=== PATIENT | male | born 1970 | race African-American/Black ===

== ENCOUNTER → 2017-07-03 | Outpatient (CLI) | payer OTHER ==
[~2017-07-03] MED LIST: AMOX875 PO; HYDR-2768 PO; LISI-363 PO
[2017-07-03 07:45] LABS: MICRO ALBUMIN RANDOM URINE RAW 12.1 MG/L (0.0-30.0)
[2017-07-03 08:04] LABS: ALT (GPT) 35 U/L (12-78); ANION GAP 9 MEQ/L (5-15); AST (GOT) 22 U/L (15-37); BICARBONATE 30.3 MEQ/L (21.0-32.0); BLOOD UREA NITROGEN 15 MG/DL (7-18); CHLORIDE 97 MEQ/L (98-107); GLOMERULAR FILTRATION RATE 75 ML/MIN (>89); GLUCOSE,FASTING 95 MG/DL (74-99); POTASSIUM 3.4 MEQ/L (3.5-5.1); SODIUM (NA) 136 MEQ/L (136-145)
[2017-07-03 08:06] LABS: AUTOMATED NEUTROPHIL # 4.1 TH/MM3 (1.8-7.7); BASOPHIL % 0.3 % (0.0-2.0); EOSINOPHIL # 0.2 TH/MM3 (0-0.4); EOSINOPHIL % 2.4 % (0.0-4.0); HEMATOCRIT 50.1 % (39.0-51.0); HEMO FLAGS DIFF FINAL; LYMPH % 39.5 % (9.0-44.0); LYMPHOCYTE # 3.3 TH/MM3 (1.0-4.8); MEAN CORPUSCULAR HEMOGLOBIN 28.7 PG (27.0-34.0); MEAN CORPUSCULAR HGB CONC 33.4 % (32.0-36.0); MONO % 8.8 % (0.0-8.0); PLATELET COUNT 215 TH/MM3 (150-450); RED BLOOD COUNT 5.83 MIL/MM3 (4.50-5.90); WHITE BLOOD COUNT 8.4 TH/MM3 (4.0-11.0)
[2017-07-03 08:14] LABS: ALKALINE PHOSPHATASE 65 U/L (45-117); HDL CHOLESTEROL 29.4 MG/DL (40.0-60.0); LDL CHOLESTEROL 168 MG/DL (0-99); TOTAL BILIRUBIN ADULT 0.6 MG/DL (0.2-1.0)
== END ==
LOC: CLAB 06:44
PROVIDERS: ATTEND Family Medicine
DX: I10 Essential (primary) hypertension (principal); R73.01 Impaired fasting glucose; N40.0 Benign prostatic hyperplasia without lower urinary tract symptoms
CPT/HCPCS: 36415; 80053; 80061; 82043; 84153; 84443; 85025

== ENCOUNTER 2018-07-04 17:11 | Inpatient (IN) ==
--- NOTE | 2018-07-04 17:23 | ED ---
HPI General Chief complaint: Urogenital-Male Stated complaint: fever/post op Time Seen by Provider: 07/04/18 17:19 Source: patient Mode of arrival: ambulatory Limitations: no limitations History of Present Illness HPI narrative: 47-year-old male with history of hypertension presents emergency department for evaluation of fever, lower abdominal pain, 3 days after prostate biopsy done by Dr. Isaac. Patient reports that initially he had hematuria. This has persisted. Yesterday he had a low-grade temperature that broke on its own. Today he had a fever of 101.8 and took 600 mg ibuprofen prior to coming to the hospital. He contacted the urologist who advised to come to the emergency department, concerned that he is uroseptic. Patient does report a suprapubic pain, moderate in severity. It does not radiate anywhere. He denies any bowel changes. He was nauseous but denies vomiting. He denies any chest pain or tightness. He has no other symptoms to report. Related Data Home Medications Medication Instructions Recorded Confirmed amlodipine 2.5 mg PO BID 07/01/18 07/04/18 lisinopril-hydrochlorothiazide 1 tab PO BID 07/01/18 07/04/18 omeprazole magnesium [Prilosec OTC] 20 mg PO DAILY 07/01/18 07/04/18 Allergies Allergy/AdvReac Type Severity Reaction Status Date / Time No Known Allergies Allergy Verified 07/04/18 17:14 Review of Systems ROS: all other systems reviewed are negative PMFSH History History Provided By: Patient Medical History Medical History Acid reflux (Acute) Elevated PSA (Acute) Hypertension (Acute) Surgical History Surgical History No history of previous surgery (Acute) Social History Social History Substance History: No History of Abuse Second Hand Smoke Exposure: No Smoking Status: Never smoker How Often Do You Have a Drink Containing Alcohol: Never Recent Travel in [facility] within the Last 8 Weeks: No Recent Out of Country Travel within the Last 8 Weeks: No Exam Narrative Exam Narrative: GENERAL: Well-nourished male patient, appears nontoxic and without distress SKIN: Focused skin assessment warm/dry. HEAD: Atraumatic. Normocephalic. EYES: Pupils equal and round. No scleral icterus. No injection or drainage. ENT: No nasal bleeding or discharge. Mucous membranes pink and moist. NECK: Trachea midline. No JVD. CARDIOVASCULAR: Regular rate and rhythm. No murmur appreciated. RESPIRATORY: No accessory muscle use. Clear to auscultation. Breath sounds equal bilaterally. GASTROINTESTINAL: Abdomen soft, nondistended. Suprapubic tenderness to palpation. No guarding. No rebound tenderness.. Hepatic and splenic margins not palpable. MUSCULOSKELETAL: No obvious deformities. No clubbing. No cyanosis. No edema. NEUROLOGICAL: Awake and alert. No obvious cranial nerve deficits. Motor grossly within normal limits. Normal speech. PSYCHIATRIC: Appropriate mood and affect; insight and judgment normal. Course Initial Documented Vital Signs Temperature 99.4 F 07/04/18 17:14 Pulse Rate 93 H 07/04/18 17:14 Respiratory Rate 20 07/04/18 17:14 Blood Pressure 195/90 H 07/04/18 17:14 Pulse Oximetry 95 07/04/18 17:14 Last Documented Vital Signs Temperature 99.4 F 07/04/18 17:14 Pulse Rate 82 07/04/18 17:19 Respiratory Rate 20 07/04/18 17:16 Blood Pressure 160/84 H 07/04/18 17:16 Pulse Oximetry 93 L 07/04/18 17:19 Medical Decision Making ROMULO Attestation ROMULO supervised visit: Yes MDM Narrative Medical decision making narrative: 47-year-old male presents emergency department for evaluation. Patient appears nontoxic. He does have suprapubic tenderness to palpation. Patient does have a low-grade temperature upon arrival. He does have a leukocytosis of 14.8. I discussed the patient my attending physician. Septic workup is initiated. Patient is given Rocephin IV. He will be admitted for further evaluation and IV antibiotic. Medical Screen Exam Complete: Yes Emergency Medical Condition: Yes Lab Data Lab results reviewed: Yes I reviewed the patient's lab results. Result diagrams: 07/04/18 17:45 07/04/18 17:45 Lab Results 07/04/18 07/04/18 07/04/18 Range/Units 17:45 17:45 17:45 WBC 14.8 H (4.0-11.0) th/mm3 RBC 5.88 (4.50-5.90) mil/mm3 Hgb 17.3 H (13.0-17.0) gm/dL Hct 50.7 (39.0-51.0) % MCV 86.2 (80.0-100.0) fL MCH 29.4 (27.0-34.0) pg MCHC 34.1 (32.0-36.0) % RDW 15.2 (11.6-17.2) % Plt Count 221 (150-450) th/mm3 MPV 9.3 (7.0-11.0) fL Neut % (Auto) 80.3 H (16.0-70.0) % Lymph % (Auto) 13.3 (9.0-44.0) % [place] % (Auto) 5.8 (0.0-8.0) % Eos % (Auto) 0.5 (0.0-4.0) % Baso % (Auto) 0.1 (0.0-2.0) % Neut # (Auto) 11.9 H (1.8-7.7) th/mm3 Lymph # (Auto) 2.0 (1.0-4.8) th/mm3 [place] # (Auto) 0.9 (0.0-0.9) th/mm3 Eos # (Auto) 0.1 (0.0-0.4) th/mm3 Baso # (Auto) 0.0 (0.0-0.2) th/mm3 WBC Differential . Differential Comment Auto diff final Sodium 139 (136-145) meq/L Potassium 3.8 (3.5-5.1) meq/L Chloride 102 (98-107) meq/L Carbon Dioxide 27.2 (21.0-32.0) meq/L Anion Gap 10 (5-15) meq/L BUN 12 (7-18) mg/dL Creatinine 1.57 H (0.60-1.30) mg/dL Estimated GFR 58 L (>89) mL/min Random Glucose 136 H (74-106) mg/dL Lactic Acid 2.0 (0.4-2.0) mmol/L Calcium 9.4 (8.5-10.1) mg/dL Total Bilirubin 0.7 (0.2-1.0) mg/dL AST 31 (15-37) U/L ALT 51 (12-78) U/L Alkaline Phosphatase 71 (45-117) U/L Total Protein 8.2 (6.4-8.2) g/dL Albumin 4.1 (3.4-5.0) g/dL Urine Color (Yellw/Straw) Urine Clarity (Clear) Urine pH (5.0-8.5) Ur Specific [place] (1.002-1.035) Urine Protein (Neg-Trace) mg/dL Urine Glucose (UA) (Negative) mg/dL Urine Ketones (Negative) mg/dL Urine Occult Blood (Negative) Urine Nitrate (Negative) Urine Bilirubin (Negative) Urine Urobilinogen (Less than 2) mg/dL Ur Leukocyte Esterase (Negative) Urine RBC (0-3) /hpf Urine WBC (0-5) /hpf Urine WBC Clumps (None) Urine Bacteria (None) /hpf Urine Mucus (Occasional) /lpf Micro UA Comment Ur Microscopic Review Urine Culture Comments 07/04/18 Range/Units 18:30 WBC (4.0-11.0) th/mm3 RBC (4.50-5.90) mil/mm3 Hgb (13.0-17.0) gm/dL Hct (39.0-51.0) % MCV (80.0-100.0) fL MCH (27.0-34.0) pg MCHC (32.0-36.0) % RDW (11.6-17.2) % Plt Count (150-450) th/mm3 MPV (7.0-11.0) fL Neut % (Auto) (16.0-70.0) % Lymph % (Auto) (9.0-44.0) % [place] % (Auto) (0.0-8.0) % Eos % (Auto) (0.0-4.0) % Baso % (Auto) (0.0-2.0) % Neut # (Auto) (1.8-7.7) th/mm3 Lymph # (Auto) (1.0-4.8) th/mm3 [place] # (Auto) (0.0-0.9) th/mm3 Eos # (Auto) (0.0-0.4) th/mm3 Baso # (Auto) (0.0-0.2) th/mm3 WBC Differential Differential Comment Sodium (136-145) meq/L Potassium (3.5-5.1) meq/L Chloride (98-107) meq/L Carbon Dioxide (21.0-32.0) meq/L Anion Gap (5-15) meq/L BUN (7-18) mg/dL Creatinine (0.60-1.30) mg/dL Estimated GFR (>89) mL/min Random Glucose (74-106) mg/dL Lactic Acid (0.4-2.0) mmol/L Calcium (8.5-10.1) mg/dL Total Bilirubin (0.2-1.0) mg/dL AST (15-37) U/L ALT (12-78) U/L Alkaline Phosphatase (45-117) U/L Total Protein (6.4-8.2) g/dL Albumin (3.4-5.0) g/dL Urine Color Red (Yellw/Straw) Urine Clarity Cloudy H (Clear) Urine pH 5.0 (5.0-8.5) Ur Specific [place] 1.020 (1.002-1.035) Urine Protein 100 H (Neg-Trace) mg/dL Urine Glucose (UA) Negative (Negative) mg/dL Urine Ketones Negative (Negative) mg/dL Urine Occult Blood Large H (Negative) Urine Nitrate Negative (Negative) Urine Bilirubin Negative (Negative) Urine Urobilinogen Less than 2 (Less than 2) mg/dL Ur Leukocyte Esterase Moderate H (Negative) Urine RBC (0-3) /hpf Urine WBC (0-5) /hpf Urine WBC Clumps Occasional H (None) Urine Bacteria Occasional H (None) /hpf Urine Mucus Few H (Occasional) /lpf Micro UA Comment Culture indicated Ur Microscopic Review Not Reportable Urine Culture Comments Culture indicated Imaging Data Radiologist's impression: Chest X-Ray 07/04/18 17:19 CONCLUSION: Negative examination. Discharge Plan Discharge Disposition Patient Disposition: 30 Still Patient Discharge Condition Condition: Stable Discharge Details Diagnosis: Sepsis, UTI (urinary tract infection) Physicians Team ED Provider: Sondra Claros ED Midlevel Provider: Mony Castelan Primary Care Provider: Beny Manning Rxs /Orders / Referrals /Forms Prescriptions: No Action lisinopril-hydrochlorothiazide 20-12.5 mg Tablet 1 tab PO BID RF: 0 amlodipine 2.5 mg Tablet 2.5 mg PO BID RF: 0 omeprazole magnesium [Prilosec OTC] 20 mg Tablet,Delayed Release (Dr/Ec) 20 mg PO DAILY RF: 0 Discharge Interventions Interventions: Vital Signs Last Done: 07/04/18 17:16 Status ED Status: With Doctor
[2018-07-04] MEDS: Sod Chloride 0.9% Inj 1,000 ML IV.SIG SCH ×2 (17:50→18:26)
[2018-07-04] MEDS ORDERED: Piperacil/Tazo 4.5 GM Premix 4.5 GM/100 ML BAG IV.SIG STA (18:14)
[2018-07-04 18:24] LABS: Baso % (Auto) 0.1 % (0.0-2.0); Eos # (Auto) 0.1 th/mm3 (0.0-0.4); Eos % (Auto) 0.5 % (0.0-4.0); Hematocrit 50.7 % (39.0-51.0); Hemoglobin 17.3 gm/dL (13.0-17.0); Lymph % (Auto) 13.3 % (9.0-44.0); Mean Corpuscular HGB Conc 34.1 % (32.0-36.0); Mean Corpuscular Hemoglobin 29.4 pg (27.0-34.0); Mean Corpuscular Volume 86.2 fL (80.0-100.0); Mean Platelet Volume 9.3 fL (7.0-11.0); Mono # (Auto) 0.9 th/mm3 (0.0-0.9); Mono % (Auto) 5.8 % (0.0-8.0); Neut # (Auto) 11.9 th/mm3 (1.8-7.7); Neut % (Auto) 80.3 % (16.0-70.0); Platelet Count 221 th/mm3 (150-450); Red Blood Count 5.88 mil/mm3 (4.50-5.90); Red Cell Distribution Width 15.2 % (11.6-17.2); White Blood Count 14.8 th/mm3 (4.0-11.0)
--- NOTE | 2018-07-04 18:44 | XR ---
EXAM DATE: 07/04/2018 6:31 PM EDT AGE/SEX: 47 years / Male INDICATIONS: Fever. Recent prostate biopsy. CLINICAL DATA: This is the patient's initial encounter. Patient reports that signs and symptoms have been present for 3 days and indicates a pain score of 0/10. MEDICAL/SURGICAL HISTORY: Hypertension. None. COMPARISON: [facility] [place], CHEST SINGLE AP, 07/20/2012. . FINDINGS: A single AP view of the chest demonstrates the lungs to be symmetrically aerated without evidence of mass, infiltrate or effusion. The cardiomediastinal contours are unremarkable. Osseous structures a re intact. CONCLUSION: Negative examination. Electronically signed by: Lupillo Hunter MD 07/04/2018 6:43 PM EDT
[2018-07-04 18:48] LABS: Alanine Aminotransferase 51 U/L (12-78); Alkaline Phosphatase 71 U/L (45-117); Total Protein 8.2 g/dL (6.4-8.2)
[2018-07-04 18:59] LABS: Bacteria,Urine Occasional /hpf; Bilirubin,Urine Negative (Negative); Clarity,Urine Cloudy (Clear); Color,Urine Red (Yellw/Straw); Glucose,Urine (UA) Negative (Negative); Leukocyte Esterase,Urine Moderate (Negative); Mucus,Urine Few /lpf (Occasional); Nitrite,Urine Negative (Negative)
[2018-07-04 19:00] LABS: Albumin 4.1 g/dL (3.4-5.0); Anion Gap 10 meq/L (5-15); Aspartate Aminotransferase 31 U/L (15-37); Blood Urea Nitrogen 12 mg/dL (7-18); Calcium 9.4 mg/dL (8.5-10.1); Carbon Dioxide 27.2 meq/L (21.0-32.0); Chloride 102 meq/L (98-107); Glomerular Filtration Rate 58 mL/min (>89); Glucose,Random 136 mg/dL (74-106); Sodium 139 meq/L (136-145)
[2018-07-04 19:04] LABS: Potassium 3.8 meq/L (3.5-5.1)
[2018-07-04] MEDS ORDERED: Morphine Inj 4 MG/ML Vial IV.PUSH PRN (20:32)
[2018-07-04] MEDS ORDERED: Bisacodyl 10 MG Supp RECTAL PRN (20:33)
--- NOTE | 2018-07-04 20:34 | P.HPIM ---
History of Present Illness Primary Care Physician: Beny Manning MD History of Present Illness: This is a 47-year-old male with a PMH of HTN who was referred to the ER by his Urologist, Dr. Isaac, for eval of possible sepsis. States he underwent prostate biopsy by Dr. Isaac on 07/02/18 for elevated PSA, has had abdominal pain and hematuria since. Pain is in lower abdomen, intermittent, moderate, 6/ 10, non-radiating. Reports associated temp of 101.8 at home. Called his Urologist and referred to the ER. On arrival, BP 155/75, HR 70, O2 sat 98% on RA, Temp 99.8. WBC 14.8. Creatinine 1.57, previously 1.42 on 06/12/2018. CXR no acute findings. S/p Rocephin in ER. - Diagnosis (1) Sepsis (2) UTI (urinary tract infection) (3) ZENAIDA (acute kidney injury) Inpatient Certification: I certify that the inpatient services were ordered in accordance with Medicare regulations governing the order. This includes certification that hospital inpatient services are reasonable and necessary and in the case of services not specified as inpatient-only under 42 CFR 419.22(n), that they are appropriately provided as inpatient services in accordance to with the 2-midnight benchmark under 43 CFR 412.3(e) Estimated Total Length of Stay (Days): 2 Plans for Post Hospital Care: Not yet determined Review of Systems PAST FAMILY HISTORY: Reviewed. No h/o DM or CAD All other systems reviewed negative except as [facility] - History History Provided By: Patient - Medical History Medical History: Medical History (Last Reviewed 07/04/18 @ 19:47 by AROLDO Flowers) Acid reflux Elevated PSA Hypertension - Surgical History Surgical History: Surgical History (Last Reviewed 07/04/18 @ 19:47 by AROLDO Flowers) No history of previous surgery - Tobacco History Second Hand Smoke Exposure: No Smoking Status: Never smoker - Alcohol History How Often Do You Have a Drink Containing Alcohol: Never - Substance Use History Substance History: No History of Abuse - Travel History Recent Travel in the [place] Within the Last 8 Weeks: No Recent Travel Out of the Country Within the Last 8 Weeks: No - Immunization History Tetanus Immunization: >5 Years Hx Influenza Vaccine This Season: Yes Medications and Allergies Active Medications: Active Medications Sodium Chloride (Ns Inj) 1,000 mls @ 0 mls/hr IV.SIG BOLUS NORTH Stop: 07/05/18 17:31 Last Admin: 07/04/18 18:26 Dose: 999 mls/hr Allergies Allergy/AdvReac Type Severity Reaction Status Date / Time No Known Allergies Allergy Verified 07/04/18 17:14 Home Medications Medication Instructions Recorded Confirmed Type amlodipine 2.5 mg PO BID 07/01/18 07/04/18 History lisinopril-hydrochlorothiazide 1 tab PO BID 07/01/18 07/04/18 History omeprazole magnesium [Prilosec OTC] 20 mg PO DAILY 07/01/18 07/04/18 History Exam Vital signs: Vital Signs 07/04/18 17:14 07/04/18 17:16 07/04/18 17:19 Temperature 99.4 F Pulse Rate 93 H 86 82 Respiratory Rate 20 20 Blood Pressure 195/90 H 160/84 H Pulse Oximetry 95 93 L 93 L Intake & Output 07/04/18 07/04/18 07/05/18 06:59 18:59 06:59 Intake Total 1000 / 1000 Balance 1000 / 1000 Weight 136.078 kg Intake: IV 1000 / 1000 NS Inj 1,000 ML @ Wide Open IV. 1000 / 1000 SIG BOLUS NORTH Rx#:[id number] Narrative: PE: GENERAL: Very pleasant middle-aged male in no acute distress. at bedside. HEENT: PERRLA, EOMI. No scleral icterus or conjunctival pallor. No lid lag or facial droop. CARDIOVASCULAR: Regular rate and rhythm. No obvious murmurs to auscultation. No chest tenderness to palpation. RESPIRATORY: No obvious rhonchi or wheezing. Clear to auscultation. Breath sounds equal bilaterally. GASTROINTESTINAL: Abdomen soft, mild suprapubic tenderness to palpation, nondistended. BS normal. MUSCULOSKELETAL: Extremities without clubbing, cyanosis, or edema. No obvious deformities. NEUROLOGICAL: Awake, alert and oriented x4. No focal neurologic deficits. Moving both upper and lower extremities spontaneously. Results - Labs CBC & Chem 7: 07/04/18 17:45 07/04/18 17:45 Labs: Short CBC 07/04/18 Range/Units 17:45 WBC 14.8 H (4.0-11.0) th/mm3 Hgb 17.3 H (13.0-17.0) gm/dL Hct 50.7 (39.0-51.0) % Plt Count 221 (150-450) th/mm3 BMP 07/04/18 17:45 Sodium 139 Potassium 3.8 Chloride 102 Carbon Dioxide 27.2 BUN 12 Creatinine 1.57 H Calcium 9.4 Liver Function 07/04/18 Range/Units 17:45 Total Bilirubin 0.7 (0.2-1.0) mg/dL AST 31 (15-37) U/L ALT 51 (12-78) U/L Alkaline Phosphatase 71 (45-117) U/L Albumin 4.1 (3.4-5.0) g/dL Urine 07/04/18 Range/Units 18:30 Urine Color Red (Yellw/Straw) Urine Clarity Cloudy H (Clear) Urine pH 5.0 (5.0-8.5) Ur Specific [place] 1.020 (1.002-1.035) Urine Protein 100 H (Neg-Trace) mg/dL Urine Glucose (UA) Negative (Negative) mg/dL - Imaging Impressions Chest X-Ray 07/04/18 17:19 CONCLUSION: Negative examination. Caprini VTE Risk Assessment Caprini VTE Risk Assessment: No/Low Risk (score <= 1) Caprini Risk Assessment Model: Point Value = 1 Point Value = 2 Point Value = 3 Point Value = 5 Age 41-60 Minor surgery BMI > 25 kg/m2 Swollen legs Varicose veins or History of unexplained or recurrent spontaneous Oral contraceptives or hormone replacement Sepsis (< 1 month) Serious lung disease, including pneumonia (< 1 month) Abnormal pulmonary function Acute myocardial infarction Congestive heart failure (< 1 month) History of inflammatory bowel disease Medical patient at bed rest Age 61-74 Arthroscopic surgery Major open surgery (> 45 min) Laparoscopic surgery (> 45 min) Malignancy Confined to bed (> 72 hours) Immobilizing plaster cast Central venous access Age >= 75 History of VTE Family history of VTE Factor V Leiden Prothrombin [id number] Lupus anticoagulant Anticardiolipin antibodies Elevated serum homocysteine Heparin-induced thrombocytopenia Other congenital or acquired thrombophilia Stroke (< 1 month) Elective arthroplasty Hip, pelvis, or leg fracture Acute spinal cord injury (< 1 month) Prophylaxis Regimen: Total Risk Factor Score Risk Level Prophylaxis Regimen 0-1 Low Early ambulation 2 Moderate Order ONE of the following: *Sequential Compression Device (SCD) *Heparin 5000 units SQ BID 3-4 Higher Order ONE of the following medications: *Heparin 5000 units SQ TID *Enoxaparin/Lovenox 40 mg SQ daily (WT < 150 kg, CrCl > 30 mL/min) *Enoxaparin/Lovenox 30 mg SQ daily (WT < 150 kg, CrCl > 10-29 mL/min) *Enoxaparin/Lovenox 30 mg SQ BID (WT < 150 kg, CrCl > 30 mL/min) AND/OR *Sequential Compression Device (SCD) 5 or more Highest Order ONE of the following medications: *Heparin 5000 units SQ TID (Preferred with Epidurals) *Enoxaparin/Lovenox 40 mg SQ daily (WT < 150 kg, CrCl > 30 mL/min) *Enoxaparin/Lovenox 30 mg SQ daily (WT < 150 kg, CrCl > 10-29 mL/min) *Enoxaparin/Lovenox 30 mg SQ BID (WT < 150 kg, CrCl > 30 mL/min) AND *Sequential Compression Device (SCD) Assessment and Plan - Assessment (1) Sepsis Code(s): A41.9 - Sepsis, unspecified organism Status: Acute (2) UTI (urinary tract infection) Code(s): N39.0 - Urinary tract infection, site not specified Status: Acute (3) ZENAIDA (acute kidney injury) Code(s): N17.9 - Acute kidney failure, unspecified Status: Acute - Plan A/P: 1. Sepsis: Temp 101.8, WBC 14, Source-UTI, s/p Blood/Urine cultures, will follow, continue IV Abx, IVF for hydration. 2. UTI: U/a w/ UTI, s/p recent prostate biopsy, continue IV Rocephin, follow up urine cultures, IVF for hydration, monitor I/O, consult Dr. Isaac for further eval. 3. ZENAIDA: Creatinine 1.57, previously 1.42 on 06/12/18, secondary to above, IVF, monitor I/O, repeat labs in am 4. DVT Prophylaxis: SCD/Teds 5. Social work for d/c planning as needed 6. Case discussed w/ ER physician at length, labs/records/imaging reviewed by me. (1) Sepsis Qualifiers: Sepsis type: sepsis due to unspecified organism Qualified Code(s): A41.9 - Sepsis, unspecified organism (2) UTI (urinary tract infection) Qualifiers: Urinary tract infection type: site unspecified Hematuria presence: with hematuria Qualified Code(s): N39.0 - Urinary tract infection, site not specified; R31.9 - Hematuria, unspecified
[2018-07-04] MEDS: Sod Chloride 0.9% Inj 1,000 ML IV.CONT SCH (20:58)
[2018-07-04] MEDS: Senna/Docusate Sodium 8.6/50 MG Tablet PO SCH (20:58)
[2018-07-05] MEDS: Acetaminophen 325 MG Tablet PO PRN ×2 (01:04→21:22)
[2018-07-05 05:37] LABS: Baso % (Auto) 0.1 % (0.0-2.0); Eos % (Auto) 0.1 % (0.0-4.0); Hematocrit 46.9 % (39.0-51.0); Hemoglobin 15.5 gm/dL (13.0-17.0); Lymph # (Auto) 1.2 th/mm3 (1.0-4.8); Lymph % (Auto) 7.4 % (9.0-44.0); Mean Corpuscular HGB Conc 33.1 % (32.0-36.0); Mean Corpuscular Hemoglobin 29.3 pg (27.0-34.0); Mean Corpuscular Volume 88.4 fL (80.0-100.0); Mean Platelet Volume 9.3 fL (7.0-11.0); Mono % (Auto) 6.4 % (0.0-8.0); Neut # (Auto) 13.9 th/mm3 (1.8-7.7); Platelet Count 188 th/mm3 (150-450); Red Blood Count 5.31 mil/mm3 (4.50-5.90); Red Cell Distribution Width 15.1 % (11.6-17.2); White Blood Count 16.1 th/mm3 (4.0-11.0)
[2018-07-05 06:32] LABS: Alanine Aminotransferase 39 U/L (12-78); Albumin 3.3 g/dL (3.4-5.0); Alkaline Phosphatase 58 U/L (45-117); Anion Gap 10 meq/L (5-15); Aspartate Aminotransferase 20 U/L (15-37); Blood Urea Nitrogen 10 mg/dL (7-18); Calcium 8.5 mg/dL (8.5-10.1); Carbon Dioxide 28.3 meq/L (21.0-32.0); Chloride 104 meq/L (98-107); Glomerular Filtration Rate 60 mL/min (>89); Glucose,Random 114 mg/dL (74-106); Potassium 3.7 meq/L (3.5-5.1); Sodium 142 meq/L (136-145)
[2018-07-05] MEDS: Sod Chloride 0.9% Inj 1,000 ML IV.CONT SCH ×3 (07:19→19:02)
[2018-07-05] MEDS: Senna/Docusate Sodium 8.6/50 MG Tablet PO SCH ×2 (08:31→20:27)
--- NOTE | 2018-07-05 11:01 | P.CONURO ---
History of Present Illness Service: Consult date: 07/05/18 Requesting Physician: Kelly Cruz Reason for Consult: Sepsis related to recent prostate biopsy Primary Care Provider: Beny Manning MD Family Provider: Beny Manning MD History of Present Illness: 47-year-old gentleman with history PSA elevation who is status post a recent transrectal ultrasound and prostate biopsy performed on July 02 of this year by . Patient reports that since the biopsy was performed he has been having fever and suprapubic pain. He also reports streaking of blood in his stools and gross hematuria. Preliminary workup in the emergency room demonstrated elevated white blood cell count and the patient was admitted for intravenous antibiotics and a urology consult was placed. With respect to gross hematuria it totally abated upon his last void earlier this morning. At the time of consultation, the patient reported feeling much better and was afebrile. Review of Systems Constitutional: Denies anorexia Cardiovascular: Denies chest pain Respiratory: Denies shortness of breath Gastrointestinal: Reports abdominal pain (Lower abdomen) Genitourinary: Reports blood in urine, Denies urinary incontinence, Denies urinary urgency Musculoskeletal: Denies back pain Neurologic: Denies tingling/numbness/burning sensations PMFSH - History History Provided By: Patient - Medical History Medical History: Medical History (Last Reviewed 07/04/18 @ 19:47 by AROLDO Flowers) Acid reflux Elevated PSA Hypertension - Surgical History Surgical History: Surgical History (Last Reviewed 07/04/18 @ 19:47 by AROLDO Flowers) No history of previous surgery - Tobacco History Second Hand Smoke Exposure: No Smoking Status: Never smoker - Alcohol History How Often Do You Have a Drink Containing Alcohol: Never - Substance Use History Substance History: No History of Abuse - Travel History Recent Travel in the [place] Within the Last 8 Weeks: No Recent Travel Out of the Country Within the Last 8 Weeks: No - Immunization History Tetanus Immunization: >5 Years Hx Influenza Vaccine This Season: Yes Medications and Allergies Active Medications: Active Medications Acetaminophen (Tylenol) 650 mg PO Q4H PRN PRN Reason: Temp > 100.4 Last Admin: 07/05/18 01:04 Dose: 650 mg Al Hydroxide/Mg Hydroxide (Milk Of Magnesia Liq) 30 ml PO Q12H PRN PRN Reason: Mild Constipation Bisacodyl (Dulcolax Supp) 10 mg RECTAL DAILY PRN PRN Reason: SEVERE CONSITIPATION Sodium Chloride (Ns Inj) 1,000 mls @ 0 mls/hr IV.SIG BOLUS [facility] Stop: 07/05/18 17:31 Last Infusion: 07/04/18 20:36 Dose: Infused Sodium Chloride (Ns Inj) 1,000 mls @ 100 mls/hr IV.CONT .Q10H NORTH Last Admin: 07/05/18 07:19 Dose: 100 mls/hr Levofloxacin/Dextrose (Levaquin 750 Mg Premix Inj) 150 mls @ 100 mls/hr IV.SIG Q24H NORTH Lactulose (Lactulose Liq) 30 ml PO DAILY PRN PRN Reason: SEVERE CONSITIPATION Morphine Sulfate (Morphine Inj) 2 mg IV.PUSH Q4H PRN PRN Reason: PAIN 6-10 Last Admin: 07/05/18 01:05 Dose: 2 mg Ondansetron HCl (Zofran Inj) 4 mg IV.PUSH Q6H PRN PRN Reason: NAUSEA OR VOMITING Last Admin: 07/05/18 01:10 Dose: 4 mg Senna/Docusate Sodium (Shruthi-Colace) 1 tab PO BID [facility] Last Admin: 07/05/18 08:31 Dose: Not Given Sennosides (Senokot) 17.2 mg PO Q12H PRN PRN Reason: Moderate Constipation Allergies Allergy/AdvReac Type Severity Reaction Status Date / Time No Known Allergies Allergy Verified 07/04/18 17:14 Home Medications Medication Instructions Recorded Confirmed Type amlodipine 2.5 mg PO BID 07/01/18 07/04/18 History lisinopril-hydrochlorothiazide 1 tab PO BID 07/01/18 07/04/18 History omeprazole magnesium [Prilosec OTC] 20 mg PO DAILY 07/01/18 07/04/18 History Physical Exam Vital Signs - 24 hr 07/04/18 17:14 07/04/18 17:16 07/04/18 17:19 Temperature 99.4 F Pulse Rate 93 H 86 82 Respiratory Rate 20 20 Blood Pressure 195/90 H 160/84 H Pulse Oximetry 95 93 L 93 L 07/04/18 21:05 07/04/18 22:31 07/04/18 23:54 Temperature 98.3 F 99.8 F H Pulse Rate 70 77 81 Respiratory Rate 16 22 18 Blood Pressure 155/75 H 154/74 H 168/79 H Pulse Oximetry 95 98 97 07/05/18 00:00 07/05/18 01:08 07/05/18 04:00 Temperature 102.2 F H 101.1 F H Pulse Rate 78 98 H Respiratory Rate 20 Blood Pressure 115/55 L Pulse Oximetry 93 L 07/05/18 08:00 Temperature 98.1 F Pulse Rate 66 Respiratory Rate 16 Blood Pressure 117/52 L Pulse Oximetry 94 L Physical Exam: GENERAL: This is a well-nourished, well-developed patient, in no apparent distress. SKIN: No rashes, ecchymoses or lesions. Cool and dry. HEAD: Atraumatic. Normocephalic. No temporal or scalp tenderness. EYES: Pupils equal round and reactive. Extraocular motions intact. No scleral icterus. No injection or drainage. ENT: Nose without bleeding, purulent drainage or septal hematoma. Throat without erythema, tonsillar hypertrophy or exudate. Uvula midline. Airway patent. NECK: Trachea midline. No JVD or lymphadenopathy. Supple, nontender, no meningeal signs. GASTROINTESTINAL: Abdomen soft, non-tender, nondistended. No hepato-splenomegaly , or palpable masses. No guarding. GENITOURINARY: No CVA tenderness, bladder not distended MUSCULOSKELETAL: Extremities without clubbing, cyanosis, or edema. No joint tenderness, effusion, or edema noted. No calf tenderness. Negative Homans sign bilaterally. NEUROLOGICAL: Awake and alert. Cranial nerves II through XII intact. Motor and sensory grossly within normal limits. Five out of 5 muscle strength in all muscle groups. Normal speech. Laboratory Results - last 24 hr 07/04/18 07/04/18 07/04/18 17:45 17:45 17:45 WBC 14.8 H RBC 5.88 Hgb 17.3 H Hct 50.7 MCV 86.2 MCH 29.4 MCHC 34.1 RDW 15.2 Plt Count 221 MPV 9.3 Neut % (Auto) 80.3 H Lymph % (Auto) 13.3 [place] % (Auto) 5.8 Eos % (Auto) 0.5 Baso % (Auto) 0.1 Neut # (Auto) 11.9 H Lymph # (Auto) 2.0 [place] # (Auto) 0.9 Eos # (Auto) 0.1 Baso # (Auto) 0.0 WBC Differential . Differential Comment Auto diff final Sodium 139 Potassium 3.8 Chloride 102 Carbon Dioxide 27.2 Anion Gap 10 BUN 12 Creatinine 1.57 H Estimated GFR 58 L Random Glucose 136 H Lactic Acid 2.0 Calcium 9.4 Total Bilirubin 0.7 AST 31 ALT 51 Alkaline Phosphatase 71 Total Protein 8.2 Albumin 4.1 Urine Color Urine Clarity Urine pH Ur Specific [place] Urine Protein Urine Glucose (UA) Urine Ketones Urine Occult Blood Urine Nitrate Urine Bilirubin Urine Urobilinogen Ur Leukocyte Esterase Urine RBC Urine WBC Urine WBC Clumps Urine Bacteria Urine Mucus Micro UA Comment Ur Microscopic Review Urine Culture Comments 07/04/18 07/05/18 07/05/18 18:30 04:07 04:07 WBC 16.1 H RBC 5.31 Hgb 15.5 Hct 46.9 MCV 88.4 MCH 29.3 MCHC 33.1 RDW 15.1 Plt Count 188 MPV 9.3 Neut % (Auto) 86.0 H Lymph % (Auto) 7.4 L [place] % (Auto) 6.4 Eos % (Auto) 0.1 Baso % (Auto) 0.1 Neut # (Auto) 13.9 H Lymph # (Auto) 1.2 [place] # (Auto) 1.0 H Eos # (Auto) 0.0 Baso # (Auto) 0.0 WBC Differential . Differential Comment Auto diff final Sodium 142 Potassium 3.7 Chloride 104 Carbon Dioxide 28.3 Anion Gap 10 BUN 10 Creatinine 1.52 H Estimated GFR 60 L Random Glucose 114 H Lactic Acid Calcium 8.5 D Total Bilirubin 1.0 AST 20 ALT 39 Alkaline Phosphatase 58 Total Protein 7.0 D Albumin 3.3 L D Urine Color Red Urine Clarity Cloudy H Urine pH 5.0 Ur Specific [place] 1.020 Urine Protein 100 H Urine Glucose (UA) Negative Urine Ketones Negative Urine Occult Blood Large H Urine Nitrate Negative Urine Bilirubin Negative Urine Urobilinogen Less than 2 Ur Leukocyte Esterase Moderate H Urine RBC Urine WBC Urine WBC Clumps Occasional H Urine Bacteria Occasional H Urine Mucus Few H Micro UA Comment Culture indicated Ur Microscopic Review Not Reportable Urine Culture Comments Culture indicated Microbiology 07/04/18 18:30 Urine Culture - Preliminary Clean Catch Urine gram negative rods Result Diagrams: 07/05/18 04:07 07/05/18 04:07 Imaging: ITS Impressions Chest X-Ray 07/04/18 17:19 CONCLUSION: Negative examination. Assessment and Plan - Assessment (1) H/O prostate biopsy Code(s): Z98.890 - Other specified postprocedural states Status: Acute (2) PSA elevation Code(s): R97.20 - Elevated prostate specific antigen [PSA] Status: Acute - Plan Urologic impression: Status post recent prostate biopsy for PSA elevation now with sepsis. Recommendations: 1. Agree with present antibiotic therapy. 2. Urologically cleared to discharge home on oral antibiotics when afebrile and has normalization of his white blood cell count 3. Patient to follow-up with his established urologist as scheduled
--- NOTE | 2018-07-05 11:52 | P.PN ---
Subjective Interval history: Nursing denies any deterioration since last night apart from a fever of 102. Patient himself says he had a rough night last night but this morning he feels much better. His fevers apparently resolved at this time. Says he feels just some pressure in his lower abdomen and his midline back but no christel pain. Says on his last void he did not see any blood. Physical Exam Vital signs: Vital Signs 07/04/18 17:14 07/04/18 17:16 07/04/18 17:19 Temperature 99.4 F Pulse Rate 93 H 86 82 Respiratory Rate 20 20 Blood Pressure 195/90 H 160/84 H Pulse Oximetry 95 93 L 93 L 07/04/18 21:05 07/04/18 22:31 07/04/18 23:54 Temperature 98.3 F 99.8 F H Pulse Rate 70 77 81 Respiratory Rate 16 22 18 Blood Pressure 155/75 H 154/74 H 168/79 H Pulse Oximetry 95 98 97 07/05/18 00:00 07/05/18 01:08 07/05/18 04:00 Temperature 102.2 F H 101.1 F H Pulse Rate 78 98 H Respiratory Rate 20 Blood Pressure 115/55 L Pulse Oximetry 93 L 07/05/18 08:00 Temperature 98.1 F Pulse Rate 66 Respiratory Rate 16 Blood Pressure 117/52 L Pulse Oximetry 94 L Intake & Output 07/04/18 07/05/18 07/05/18 18:59 06:59 18:59 Intake Total 1000 / 1000 1900 / 1900 Balance 1000 / 1000 1900 / 1900 Weight 136.078 kg 137.5 kg Intake: IV 1000 / 1000 1900 / 1900 NS Inj 1,000 ML @ 100 mls/hr IV 800 / 800 .CONT .Q10H NORTH Rx#:[id number] NS Inj 1,000 ML @ Wide Open IV. 1000 / 1000 1000 / 1000 SIG BOLUS NORTH Rx#:[id number] Rocephin Inj 1,000 MG In NS Inj 100 / 100 100 ML @ 200 mls/hr IV.SIG ONCE ONE Rx#:[id number] Other: Weight On Admission 137.5 kg Narrative: Suprapubic discomfort but no tenderness to palpation Clear lungs bilaterally, unlabored breathing Heart sounds regular rate rhythm, no murmurs No acute distress Results - Labs CBC & Chem 7: 07/05/18 04:07 07/05/18 04:07 Laboratory Results - last 24 hr 07/04/18 07/04/18 07/04/18 17:45 17:45 17:45 WBC 14.8 H RBC 5.88 Hgb 17.3 H Hct 50.7 MCV 86.2 MCH 29.4 MCHC 34.1 RDW 15.2 Plt Count 221 MPV 9.3 Neut % (Auto) 80.3 H Lymph % (Auto) 13.3 [place] % (Auto) 5.8 Eos % (Auto) 0.5 Baso % (Auto) 0.1 Neut # (Auto) 11.9 H Lymph # (Auto) 2.0 [place] # (Auto) 0.9 Eos # (Auto) 0.1 Baso # (Auto) 0.0 WBC Differential . Differential Comment Auto diff final Sodium 139 Potassium 3.8 Chloride 102 Carbon Dioxide 27.2 Anion Gap 10 BUN 12 Creatinine 1.57 H Estimated GFR 58 L Random Glucose 136 H Lactic Acid 2.0 Calcium 9.4 Total Bilirubin 0.7 AST 31 ALT 51 Alkaline Phosphatase 71 Total Protein 8.2 Albumin 4.1 Urine Color Urine Clarity Urine pH Ur Specific [place] Urine Protein Urine Glucose (UA) Urine Ketones Urine Occult Blood Urine Nitrate Urine Bilirubin Urine Urobilinogen Ur Leukocyte Esterase Urine RBC Urine WBC Urine WBC Clumps Urine Bacteria Urine Mucus Micro UA Comment Ur Microscopic Review Urine Culture Comments 07/04/18 07/05/18 07/05/18 18:30 04:07 04:07 WBC 16.1 H RBC 5.31 Hgb 15.5 Hct 46.9 MCV 88.4 MCH 29.3 MCHC 33.1 RDW 15.1 Plt Count 188 MPV 9.3 Neut % (Auto) 86.0 H Lymph % (Auto) 7.4 L [place] % (Auto) 6.4 Eos % (Auto) 0.1 Baso % (Auto) 0.1 Neut # (Auto) 13.9 H Lymph # (Auto) 1.2 [place] # (Auto) 1.0 H Eos # (Auto) 0.0 Baso # (Auto) 0.0 WBC Differential . Differential Comment Auto diff final Sodium 142 Potassium 3.7 Chloride 104 Carbon Dioxide 28.3 Anion Gap 10 BUN 10 Creatinine 1.52 H Estimated GFR 60 L Random Glucose 114 H Lactic Acid Calcium 8.5 D Total Bilirubin 1.0 AST 20 ALT 39 Alkaline Phosphatase 58 Total Protein 7.0 D Albumin 3.3 L D Urine Color Red Urine Clarity Cloudy H Urine pH 5.0 Ur Specific [place] 1.020 Urine Protein 100 H Urine Glucose (UA) Negative Urine Ketones Negative Urine Occult Blood Large H Urine Nitrate Negative Urine Bilirubin Negative Urine Urobilinogen Less than 2 Ur Leukocyte Esterase Moderate H Urine RBC Urine WBC Urine WBC Clumps Occasional H Urine Bacteria Occasional H Urine Mucus Few H Micro UA Comment Culture indicated Ur Microscopic Review Not Reportable Urine Culture Comments Culture indicated 07/05/18 10:15 WBC RBC Hgb Hct MCV MCH MCHC RDW Plt Count MPV Neut % (Auto) Lymph % (Auto) [place] % (Auto) Eos % (Auto) Baso % (Auto) Neut # (Auto) Lymph # (Auto) [place] # (Auto) Eos # (Auto) Baso # (Auto) WBC Differential Differential Comment Sodium Potassium Chloride Carbon Dioxide Anion Gap BUN Creatinine Estimated GFR Random Glucose Lactic Acid 1.3 Calcium Total Bilirubin AST ALT Alkaline Phosphatase Total Protein Albumin Urine Color Urine Clarity Urine pH Ur Specific [place] Urine Protein Urine Glucose (UA) Urine Ketones Urine Occult Blood Urine Nitrate Urine Bilirubin Urine Urobilinogen Ur Leukocyte Esterase Urine RBC Urine WBC Urine WBC Clumps Urine Bacteria Urine Mucus Micro UA Comment Ur Microscopic Review Urine Culture Comments Microbiology 07/04/18 17:45 Blood - Peripheral Aerobic Blood Culture - Preliminary gram negative rods 07/04/18 17:45 Blood - Peripheral Anaerobic Blood Culture - Preliminary No growth in 1 day 07/04/18 17:40 Blood - Peripheral Aerobic Blood Culture - Preliminary No growth in 1 day 07/04/18 17:40 Blood - Peripheral Anaerobic Blood Culture - Preliminary No growth in 1 day 07/04/18 18:30 Clean Catch Urine Urine Culture - Preliminary gram negative rods - Imaging Impressions Chest X-Ray 07/04/18 17:19 CONCLUSION: Negative examination. Assessment and Plan - Assessment (1) Sepsis Code(s): A41.9 - Sepsis, unspecified organism Status: Acute (2) UTI (urinary tract infection) Code(s): N39.0 - Urinary tract infection, site not specified Status: Acute (3) ZENAIDA (acute kidney injury) Code(s): N17.9 - Acute kidney failure, unspecified Status: Acute - Plan A/P: Sepsis: -Status post boluses, continue IV fluids, continue antibiotics, awaiting blood cultures -Source likely acute bacterial prostatitis secondary to biopsy -Rechecking lactic acid Acute bacterial prostatitis -We will switch antibiotics from Rocephin to Levaquin -Appreciate urology recommendations Acute kidney injury -Possibly due to dehydration, IV fluids, recheck in a.m. (1) Sepsis Qualifiers: Sepsis type: sepsis due to unspecified organism Qualified Code(s): A41.9 - Sepsis, unspecified organism (2) UTI (urinary tract infection) Qualifiers: Urinary tract infection type: site unspecified Hematuria presence: with hematuria Qualified Code(s): N39.0 - Urinary tract infection, site not specified; R31.9 - Hematuria, unspecified
[2018-07-05] MEDS ORDERED: Morphine Inj 4 MG/ML Vial IV.PUSH PRN (12:54)
--- NOTE | 2018-07-05 12:55 | ECG ---
Date Performed: 07/04/2018 Time Performed: 17:57:57 PTAGE: 47 years EKG: Sinus rhythm BORDERLINE LEFT AXIS DEVIATION BORDERLINE ECG PREVIOUS TRACING : 07/02/2018 14.09 Since the previous tracing, no significant change noted DOCTOR: Abdirizak [place] Interpretating Date/Time 07/05/2018 12:53:48
[2018-07-06] MEDS: Sod Chloride 0.9% Inj 1,000 ML IV.CONT SCH ×3 (04:14→16:14)
[2018-07-06 05:15] LABS: Baso % (Auto) 0.3 % (0.0-2.0); Hematocrit 44.9 % (39.0-51.0); Hemoglobin 15.1 gm/dL (13.0-17.0); Lymph # (Auto) 1.3 th/mm3 (1.0-4.8); Lymph % (Auto) 12.1 % (9.0-44.0); Mean Corpuscular HGB Conc 33.6 % (32.0-36.0); Mean Corpuscular Hemoglobin 29.4 pg (27.0-34.0); Mean Corpuscular Volume 87.6 fL (80.0-100.0); Mean Platelet Volume 8.8 fL (7.0-11.0); Mono # (Auto) 0.9 th/mm3 (0.0-0.9); Mono % (Auto) 8.4 % (0.0-8.0); Neut # (Auto) 8.6 th/mm3 (1.8-7.7); Neut % (Auto) 79.2 % (16.0-70.0); Platelet Count 160 th/mm3 (150-450); Red Blood Count 5.13 mil/mm3 (4.50-5.90); Red Cell Distribution Width 14.6 % (11.6-17.2); White Blood Count 10.8 th/mm3 (4.0-11.0)
[2018-07-06] MEDS: Senna/Docusate Sodium 8.6/50 MG Tablet PO SCH ×2 (10:17→20:09)
[2018-07-06] MEDS: Piperacil/Tazo 3.375 GM Premix 50 ML IV.SIG SCH ×3 (11:54→23:30)
--- NOTE | 2018-07-06 15:34 | MB ---
cc: Maicol Brasher MD DATE: 07/06/2018 REQUESTING PHYSICIAN: Dr. Beltran, REASON: Refractory fevers despite antibiotics. Status post prostate biopsy, urinary tract infection and bacteremia. HISTORY OF PRESENT ILLNESS: This is a 47-year-old black male who is post-prostate biopsy a few days ago. He developed bleeding and fever postop along with lower abdominal pain approximately 3 days post-procedure and presented to the emergency department for evaluation. The patient was admitted and started on antibiotics. His white blood count was 14.8 on admission. Urinalysis was performed and came back showing Escherichia coli, multidrug resistant. Blood cultures; one bottle positive with gram-negative mary and identity of the gram-negative bacteria in the blood is not yet available. The patient says that he feels better. He denies chills or nausea. His white count is down to normal at 10.8 today. Maximum temperature today is 99.9. Yesterday evening, temperature was 101.9 degrees. He is sitting up in the chair watching videos on his cell phone. He has no other complaints and states that he is urinating well. He has no back pain currently. PAST MEDICAL HISTORY: Hypertension, elevated PSA, acid reflux. ALLERGIES: NO KNOWN DRUG ALLERGIES. MEDICATIONS: 1. Morphine sulfate p.r.n. 2. Zofran. 3. Piperacillin/tazobactam. SOCIAL HISTORY: No tobacco, no alcohol, no illicit drugs. FAMILY HISTORY: Noncontributory. REVIEW OF SYSTEMS: Negative on 10-point review. PHYSICAL EXAMINATION: GENERAL: This is a moderately obese male who is in no acute distress. He is awake and alert and oriented. VITAL SIGNS: Temperature 98.1, BP 164/89, respirations 20, heart rate 71. HEENT: The head is atraumatic. Extraocular movements grossly intact. Pupils reactive to light. No icterus. Oropharynx moist mucosa without lesions. NECK: Supple without adenopathy. LUNGS: Clear to auscultation. HEART: Regular S1, S2, without murmurs, rubs or gallops. ABDOMEN: Bowel sounds present, obese, soft, nontender. No flank tenderness. RECTAL: Not performed. EXTREMITIES: No clubbing, cyanosis or edema. SKIN: No rash. NEUROLOGIC: No gross focal finding. PSYCHIATRIC: The patient is calm and cooperative. LABORATORY DATA: WBC 10.8, platelets 160, 79% neutrophils, hemoglobin 15.1. Creatinine 1.52, BUN 10, sodium 142. Estimated GFR of 60. Liver function test normal. Urinalysis on 07/04/2018 showed innumerable white cells and innumerable red cells. IMPRESSION: 1. Sepsis secondary to urinary tract infection. 2. Urinary tract infection following prostate biopsy with Escherichia coli, multidrug resistant. The patient appears to be improving. His temperature is better and his white blood cell count has decreased. However, we need to monitor the temperature to make sure it remains normal before decision can be made for continued treatment possibly outpatient. The patient is adamant about going home, but I told him that he needs to have a repeat blood culture checked. We may be able to send him home on IV antibiotics and followup with the urologist or infectious disease doctor outpatient. 3. The patient also has renal insufficiency and that should be monitored as well. RECOMMENDATIONS: 1. Continue piperacillin/tazobactam. 2. Monitor repeat blood culture. 3. If the temperature is normal and blood culture is negative, consideration could be made to sending him home on ceftriaxone if the blood culture bacteria is sensitive to ceftriaxone. Thank you for this consultation. The patient's progress will be followed. MD NATALIE Santos/pasha , 02:53 PM , 03:05 PM [place]
[2018-07-06] MEDS: NIFEdipine 10 MG Capsule PO SCH ×3 (16:14→20:45)
--- NOTE | 2018-07-06 16:33 | P.PN ---
Subjective Interval history: Nursing denies any deterioration since last night. Patient himself says he feels much better today. No nausea no vomiting no fevers no belly pain. Physical Exam Vital signs: Vital Signs 07/05/18 20:00 07/06/18 00:00 07/06/18 04:00 Temperature 101.9 F H 98.1 F 99.9 F H Pulse Rate 80 65 79 Respiratory Rate 18 18 18 Blood Pressure 145/65 H 150/66 H Pulse Oximetry 93 L 68 L 92 L 07/06/18 08:00 07/06/18 08:09 07/06/18 12:00 Temperature 98.3 F 98.1 F Pulse Rate 75 75 71 Respiratory Rate 20 20 Blood Pressure 170/89 H 164/89 H Pulse Oximetry 95 97 07/06/18 12:03 Temperature Pulse Rate 70 Respiratory Rate Blood Pressure Pulse Oximetry Intake & Output 07/05/18 07/06/18 07/06/18 18:59 06:59 18:59 Intake Total 1025 / 1025 2705 / 2705 1200 / 1200 Balance 1025 / 1025 2705 / 2705 1200 / 1200 Intake: IV 1025 / 1025 1025 / 1025 1200 / 1200 NS Inj 1,000 ML @ 100 mls/hr IV 875 / 875 1025 / 1025 1000 / 1000 .CONT .Q10H [facility] Rx#:[id number] Levaquin 750 mg Premix Inj 150 150 / 150 150 / 150 ML @ 100 mls/hr IV.SIG Q24H [facility] Rx#:[id number] Zosyn 3.375 GM Premix 50 ML @ 50 / 50 100 mls/hr IV.SIG Q6H [facility] Rx#: [id number] Oral 1680 / 1680 Other: # Voids 6 Date of Last Bowel Movement 07/03/18 07/06/18 Narrative: Abdomen soft, nontender, nondistended No CVA tenderness palpation Unlabored breathing, clear lungs bilaterally Results - Labs CBC & Chem 7: 07/06/18 04:53 07/05/18 04:07 Laboratory Results - last 24 hr 07/06/18 04:53 WBC 10.8 RBC 5.13 Hgb 15.1 Hct 44.9 MCV 87.6 MCH 29.4 MCHC 33.6 RDW 14.6 Plt Count 160 MPV 8.8 Neut % (Auto) 79.2 H Lymph % (Auto) 12.1 [place] % (Auto) 8.4 H Eos % (Auto) 0.0 Baso % (Auto) 0.3 Neut # (Auto) 8.6 H Lymph # (Auto) 1.3 [place] # (Auto) 0.9 Eos # (Auto) 0.0 Baso # (Auto) 0.0 WBC Differential . Differential Comment Auto diff final Microbiology 07/04/18 17:40 Blood - Peripheral Aerobic Blood Culture - Preliminary No growth in 2 days 07/04/18 17:40 Blood - Peripheral Anaerobic Blood Culture - Preliminary No growth in 2 days 07/04/18 17:45 Blood - Peripheral Aerobic Blood Culture - Preliminary gram negative rods 07/04/18 17:45 Blood - Peripheral Anaerobic Blood Culture - Preliminary No growth in 2 days 07/04/18 18:30 Clean Catch Urine Urine Culture - Final Escherichia coli Multidrug Resistant Assessment and Plan - Assessment (1) Sepsis Code(s): A41.9 - Sepsis, unspecified organism Status: Acute (2) UTI (urinary tract infection) Code(s): N39.0 - Urinary tract infection, site not specified Status: Acute (3) ZENAIDA (acute kidney injury) Code(s): N17.9 - Acute kidney failure, unspecified Status: Acute - Plan A/P: Sepsis: -Sepsis element resolved, white count normalized, still febrile Acute bacterial prostatitis Restart history urinary tract infection Gram-negative bacteremia -possibly from UTI/prostatitis -Due to persistent fever from last night while on Levaquin, will add on Zosyn, continue Levaquin -Repeat blood cultures, consulting ID due to recurring fever -Appreciate urology recommendations Acute kidney injury -normalized to CKD level HTN - starting nifedipine (1) Sepsis Qualifiers: Sepsis type: sepsis due to unspecified organism Qualified Code(s): A41.9 - Sepsis, unspecified organism (2) UTI (urinary tract infection) Qualifiers: Urinary tract infection type: site unspecified Hematuria presence: with hematuria Qualified Code(s): N39.0 - Urinary tract infection, site not specified; R31.9 - Hematuria, unspecified
[2018-07-06] MEDS ORDERED: Enoxaparin Inj 30 MG/0.3 ML Syringe SQ SCH (17:00)
[2018-07-06] MEDS: Acetaminophen 325 MG Tablet PO PRN (20:08)
[2018-07-07] MEDS: Sod Chloride 0.9% Inj 1,000 ML IV.CONT SCH ×2 (03:50→11:56)
[2018-07-07] MEDS: Piperacil/Tazo 3.375 GM Premix 50 ML IV.SIG SCH ×2 (05:24→12:11)
[2018-07-07] MEDS: Senna/Docusate Sodium 8.6/50 MG Tablet PO SCH (08:10)
[2018-07-07] MEDS ORDERED: levoFLOXacin 750 MG Tablet PO SCH (09:00)
[2018-07-07] MEDS: NIFEdipine 10 MG Capsule PO SCH ×2 (09:04→12:11)
--- NOTE | 2018-07-07 11:43 | P.DS ---
Date of admission: 07/04/18 20:23 Primary care physician: Beny Manning MD Brief History from admission: This is a 47-year-old male with a PMH of HTN who was referred to the ER by his Urologist, Dr. Isaac, for eval of possible sepsis. States he underwent prostate biopsy by Dr. Isaac on 07/02/18 for elevated PSA, has had abdominal pain and hematuria since. Pain is in lower abdomen, intermittent, moderate, 6/ 10, non-radiating. Reports associated temp of 101.8 at home. Called his Urologist and referred to the ER. On arrival, BP 155/75, HR 70, O2 sat 98% on RA, Temp 99.8. WBC 14.8. Creatinine 1.57, previously 1.42 on 06/12/2018. CXR no acute findings. S/p Rocephin in ER. DS: Diagnosis - Discharge Diagnosis (1) Sepsis Status: Acute (2) UTI (urinary tract infection) Status: Acute (3) ZENAIDA (acute kidney injury) Status: Acute DS: Medications - Discharge Medications Prescriptions: levofloxacin 750 mg PO DAILY #10 tab DS: Summary Hospital Course: Patient was admitted, started on IV fluids and antibiotics. Fever ultimately subsided. Found to be bacteremic likely secondary to UTI likely secondary to suspected prostate biopsy complication infection E. coli. Sensitive to Levaquin. Patient is tolerating p.o. intake well with resolution of his pain. Patient has met maximal benefit from hospitalization is clinically stable for discharge. - Time Spent with Patient Total time spent providing and/or coordinating discharge services: Less than 30 minutes - Quality: VTE Deep Vein Thrombosis/Pulmonary Embolism Present on Admission: No Exam Vital signs: Vital Signs 07/06/18 12:00 07/06/18 12:03 07/06/18 16:00 Temperature 98.1 F 99.2 F Pulse Rate 71 70 87 Respiratory Rate 20 20 Blood Pressure 164/89 H 171/87 H Pulse Oximetry 97 95 07/06/18 17:49 07/06/18 20:00 07/07/18 00:00 Temperature 98.9 F 97.7 F Pulse Rate 87 80 74 Respiratory Rate 18 18 Blood Pressure 171/87 H 122/59 L 120/60 Pulse Oximetry 94 L 96 07/07/18 04:00 07/07/18 07:43 07/07/18 08:00 Temperature 98.4 F 97.4 F L Pulse Rate 70 61 66 Respiratory Rate 18 20 Blood Pressure 138/61 164/85 H Pulse Oximetry 96 95 Intake & Output 07/06/18 07/07/18 07/07/18 18:59 06:59 18:59 Intake Total 1250 / 1250 1100 / 1100 Balance 1250 / 1250 1100 / 1100 Intake: IV 1250 / 1250 1100 / 1100 NS Inj 1,000 ML @ 100 mls/hr IV 1000 / 1000 1000 / 1000 .CONT .Q10H [facility] Rx#:[id number] Levaquin 750 mg Premix Inj 150 150 / 150 ML @ 100 mls/hr IV.SIG Q24H [facility] Rx#:[id number] Zosyn 3.375 GM Premix 50 ML @ 100 / 100 100 / 100 100 mls/hr IV.SIG Q6H [facility] Rx#: [id number] Other: Date of Last Bowel Movement 07/06/18 07/06/18 Narrative: Abdomen soft, nontender, nondistended Unlabored breathing Results Procedures completed during hospitalization: . Labs on day of discharge: Preliminary micro results at discharge 07/06/18 11:45 Aerobic Blood Culture - Preliminary Blood - Peripheral No growth in 1 day Anaerobic Blood Culture - Preliminary No growth in 1 day 07/06/18 11:40 Aerobic Blood Culture - Preliminary Blood - Peripheral No growth in 1 day Anaerobic Blood Culture - Preliminary No growth in 1 day 07/04/18 17:40 Aerobic Blood Culture - Preliminary Blood - Peripheral No growth in 3 days Anaerobic Blood Culture - Preliminary No growth in 3 days 07/04/18 17:45 Anaerobic Blood Culture - Preliminary Blood - Peripheral No growth in 3 days - Impressions ITS Impressions Chest X-Ray 07/04/18 17:19 CONCLUSION: Negative examination. Discharge Plan - Discharge Disposition Patient Disposition: Discharge Home - Discharge Condition Condition: Stable - Discharge Order Discharge Orders: Discharge Order (Routine); Ordered 07/07/18 Ordered By: Lucius Beltran - Physicians Team Primary Care Provider: Beny Manning Attending Provider: Lucius Beltran Other Providers: Alexx Abreu MD ; Maicol Brasher MD
--- NOTE | 2018-07-07 12:03 | P.PNID ---
Subjective Remarks: Patient feels okay. He denies chills. No nausea or vomiting. Afebrile. White blood cell count normal. Notes that he is making urine without difficulty. No blood noticed in the urine. Blood culture has E. coli sensitive to Levaquin. This is a 47-year-old black male who is post-prostate biopsy a few days ago. He developed bleeding and fever postop along with lower abdominal pain approximately 3 days post-procedure and presented to the emergency department for evaluation. The patient was admitted and started on antibiotics. His white blood count was 14.8 on admission. Urinalysis was performed and came back showing Escherichia coli, multidrug resistant. Past Medical History: PAST MEDICAL HISTORY: Hypertension, elevated PSA, acid reflux. Allergies/Adverse Reactions: Allergies No Known Allergies Allergy (Verified 07/04/18 17:14) Objective Vital Signs 07/06/18 12:00 07/06/18 12:03 07/06/18 16:00 Temperature 98.1 F 99.2 F Pulse Rate 71 70 87 Respiratory Rate 20 20 Blood Pressure 164/89 H 171/87 H Pulse Oximetry 97 95 07/06/18 17:49 07/06/18 20:00 07/07/18 00:00 Temperature 98.9 F 97.7 F Pulse Rate 87 80 74 Respiratory Rate 18 18 Blood Pressure 171/87 H 122/59 L 120/60 Pulse Oximetry 94 L 96 07/07/18 04:00 07/07/18 07:43 07/07/18 08:00 Temperature 98.4 F 97.4 F L Pulse Rate 70 61 66 Respiratory Rate 18 20 Blood Pressure 138/61 164/85 H Pulse Oximetry 96 95 Intake & Output 07/06/18 07/07/18 07/07/18 18:59 06:59 18:59 Intake Total 1250 / 1250 1100 / 1100 Balance 1250 / 1250 1100 / 1100 Intake: IV 1250 / 1250 1100 / 1100 NS Inj 1,000 ML @ 100 mls/hr IV 1000 / 1000 1000 / 1000 .CONT .Q10H [facility] Rx#:[id number] Levaquin 750 mg Premix Inj 150 150 / 150 ML @ 100 mls/hr IV.SIG Q24H [facility] Rx#:[id number] Zosyn 3.375 GM Premix 50 ML @ 100 / 100 100 / 100 100 mls/hr IV.SIG Q6H [facility] Rx#: [id number] Other: Date of Last Bowel Movement 07/06/18 07/06/18 07/06/18 11:45 Blood - Peripheral Aerobic Blood Culture - Preliminary No growth in 1 day 07/06/18 11:45 Blood - Peripheral Anaerobic Blood Culture - Preliminary No growth in 1 day 07/06/18 11:40 Blood - Peripheral Aerobic Blood Culture - Preliminary No growth in 1 day 07/06/18 11:40 Blood - Peripheral Anaerobic Blood Culture - Preliminary No growth in 1 day 07/04/18 17:40 Blood - Peripheral Aerobic Blood Culture - Preliminary No growth in 3 days 07/04/18 17:40 Blood - Peripheral Anaerobic Blood Culture - Preliminary No growth in 3 days 07/04/18 17:45 Blood - Peripheral Aerobic Blood Culture - Final Escherichia coli 07/04/18 17:45 Blood - Peripheral Anaerobic Blood Culture - Preliminary No growth in 3 days 07/04/18 18:30 Clean Catch Urine Urine Culture - Final Escherichia coli Multidrug Resistant Lab - Hematology Results 07/06/18 04:53 WBC 10.8 RBC 5.13 Hgb 15.1 Hct 44.9 MCV 87.6 MCH 29.4 MCHC 33.6 RDW 14.6 Plt Count 160 MPV 8.8 Neut % (Auto) 79.2 H Lymph % (Auto) 12.1 [place] % (Auto) 8.4 H Eos % (Auto) 0.0 Baso % (Auto) 0.3 Neut # (Auto) 8.6 H Lymph # (Auto) 1.3 [place] # (Auto) 0.9 Eos # (Auto) 0.0 Baso # (Auto) 0.0 WBC Differential . Differential Comment Auto diff final Imaging: ITS Impressions Chest X-Ray 07/04/18 17:19 CONCLUSION: Negative examination. Physical Exam: PHYSICAL EXAMINATION: GENERAL: No acute distress. Awake and alert and oriented. HEENT: The head is atraumatic. Extraocular movements grossly intact. Pupils reactive to light. No icterus. Oropharynx moist mucosa without lesions. NECK: Supple without adenopathy. LUNGS: Clear to auscultation. HEART: Regular S1, S2, without murmurs, rubs or gallops. ABDOMEN: Bowel sounds present, obese, soft, nontender. No flank tenderness. EXTREMITIES: No clubbing, cyanosis or edema. SKIN: No rash. NEUROLOGIC: No gross focal finding. PSYCHIATRIC: Calm and cooperative. Assessment and Plan - Plan IMPRESSION: 1. Sepsis secondary to urinary tract infection. 2. Urinary tract infection following prostate biopsy with Escherichia coli, multidrug resistant. Stable. RECOMMENDATIONS: 1. Okay to discharge home with Levaquin PO x 10 days. 2. Follow up with Urologist. Discussed with Dr. Beltran.
[2018-07-07 13:29] LABS: Calcium 8.3 mg/dL (8.5-10.1); Carbon Dioxide 30.1 meq/L (21.0-32.0); Potassium 3.5 meq/L (3.5-5.1)
== END 2018-07-07 15:23 | disposition home or self-care (01) ==
LOC: NEPE 17:11 → NEDA 20:23 → N04 22:17
PROVIDERS: ADMIT Hospitalist; ATTEND Hospitalist